=== PATIENT | male | born 1980 | race African-American/Black ===

== ENCOUNTER 2017-11-09 07:56 | Emergency (ER) | payer MEDICAID ==
[2017-11-09] MEDS ORDERED: Ibuprofen 800 MG TAB ONE (08:35)
[2017-11-09] MEDS ORDERED: Dexamethasone 4 MG TAB ONE (08:35)
[2017-11-09] MEDS ORDERED: Benzonatate 100 MG CAP ONE (08:35)
[2017-11-09] MEDS ORDERED: Oseltamivir 75 MG CAP ONE (09:14)
== END 2017-11-09 09:20 | disposition home or self-care (01) ==
LOC: MADERS 07:56
DX: J11.1 Influenza due to unidentified influenza virus with other respiratory manifestations (principal); F17.210 Nicotine dependence, cigarettes, uncomplicated
CPT/HCPCS: 99283; J8540

== ENCOUNTER 2018-04-08 13:04 | Emergency (ER) | payer OTHER | END 2018-04-08 14:27 | disposition home or self-care (01) | LOC: MADERS 13:04 | DX: M62.830 Muscle spasm of back (principal); J01.90 Acute sinusitis, unspecified; F17.210 Nicotine dependence, cigarettes, uncomplicated; W09.8XXA Fall on or from other playground equipment, initial encounter | CPT/HCPCS: 99283 ==

== ENCOUNTER 2018-07-29 22:42 | Emergency (ER) | payer OTHER ==
[2018-07-29] MEDS ORDERED: Ketorolac Tromethamine 60 MG/2 ML VIAL ONE (22:56)
== END 2018-07-29 23:23 | disposition home or self-care (01) ==
LOC: MADERS 22:42
DX: M25.511 Pain in right shoulder (principal); F17.210 Nicotine dependence, cigarettes, uncomplicated
CPT/HCPCS: 96372; J1885

== ENCOUNTER 2018-08-03 14:55 | Emergency (ER) | payer OTHER ==
[2018-08-03] MEDS ORDERED: Ketorolac Tromethamine 60 MG/2 ML VIAL ONE (15:28)
--- NOTE | 2018-08-03 16:19 | RAD ---
3 VIEWS RIGHT SHOULDER: Date: 08/03/18 INDICATION: Right shoulder injury. COMPARISON: Prior study dated 06/23/13. 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 No acute fracture or subluxation is evide nt. Visualized right lung is clear. IMPRESSION: No acute osseous abnormality. POS: [facility]
== END 2018-08-03 15:50 | disposition home or self-care (01) ==
LOC: MADERS 14:55
DX: M25.511 Pain in right shoulder (principal); F17.210 Nicotine dependence, cigarettes, uncomplicated
CPT/HCPCS: 96372; J1885

== ENCOUNTER 2018-08-15 01:35 | Emergency (ER) | payer OTHER | END 2018-08-15 02:15 | disposition home or self-care (01) | LOC: MADERS 01:35 | DX: J02.9 Acute pharyngitis, unspecified (principal); I10 Essential (primary) hypertension; F17.210 Nicotine dependence, cigarettes, uncomplicated; Z79.899 Other long term (current) drug therapy | CPT/HCPCS: 99283 ==

== ENCOUNTER 2018-09-06 10:30 | Outpatient (CLI) | payer OTHER ==
--- NOTE | 2018-09-06 12:12 | RAD ---
THREE VIEWS OF THE CERVICAL SPINE: Comparison: None. History: Neck spasms for one month. FINDINGS: Three views of the cervical spine shows normal height and alignment of the vertebral bodies and inter vertebral disc without fracture or subluxation. No significant degenerative changes are seen. No prev ertebral soft tissue swelling is present. IMPRESSION: No significant abnormality. POS: [facility]
== END 2018-09-06 10:31 | disposition home or self-care (01) ==
LOC: MADRAD 10:30
PROVIDERS: ATTEND Family Medicine
DX: M62.838 Other muscle spasm (principal)
CPT/HCPCS: 72040

== ENCOUNTER 2019-01-12 22:31 | Emergency (ER) | payer OTHER ==
--- NOTE | 2019-01-12 23:45 | RAD ---
PA AND LATERAL CHEST X-RAY: 01/12/19 HISTORY: Chest pain. COMPARISON: 08/30/15. FINDINGS: The cardiac silhouette remains at the upper limits of normal in size. Pulmonary vasculature is within normal limits. The lungs remain clear. There has been no interval change from the prior exam. IMPRESSION: Stable chest without evidence of an acute cardiopulmonary process. POS: [facility]
== END 2019-01-12 23:59 | disposition home or self-care (01) ==
LOC: MADERS 22:31
DX: S29.011A Strain of muscle and tendon of front wall of thorax, initial encounter (principal); F17.210 Nicotine dependence, cigarettes, uncomplicated; Z79.899 Other long term (current) drug therapy; W19.XXXA Unspecified fall, initial encounter
CPT/HCPCS: 71046; 93005

== ENCOUNTER 2021-07-14 15:09 | Emergency (ER) | payer OTHER ==
[2021-07-14] MEDS ORDERED: Ondansetron ODT 4 MG TAB ONE (16:17)
== END 2021-07-14 16:30 | disposition left against medical advice (07) ==
LOC: MADERS 15:09
DX: K59.00 Constipation, unspecified (principal); R10.9 Unspecified abdominal pain; F17.210 Nicotine dependence, cigarettes, uncomplicated; R11.2 Nausea with vomiting, unspecified; Z79.899 Other long term (current) drug therapy
CPT/HCPCS: 93005; Q0162

== ENCOUNTER 2022-07-21 23:30 | Emergency (ER) | payer OTHER ==
[2022-07-22] MEDS ORDERED: Ibuprofen 800 MG TAB ONE (00:09)
[2022-07-22] MEDS ORDERED: Dexamethasone 4 MG TAB ONE (00:09)
== END 2022-07-22 01:03 | disposition home or self-care (01) ==
LOC: MADERS 23:30
DX: J02.9 Acute pharyngitis, unspecified (principal); B34.9 Viral infection, unspecified; F17.210 Nicotine dependence, cigarettes, uncomplicated; Z20.822 Contact with and (suspected) exposure to COVID-19
CPT/HCPCS: 87081; 87430; 99283; J8540; U0003; U0005